=== PATIENT | male | born 1980 | race Caucasian/White ===

== ENCOUNTER 2016-04-16 11:25 | Emergency (ER) | payer OTHER ==
--- NOTE | 2016-04-16 12:59 | EDDOCDS ---
Physician Documentation [facility] Name: Sukhwinder Faye Age: 36 yrs Sex: Male : 1980 Arrival Date: 04/16/2016 Time: 11:25 Bed TR3 Private MD: CONNIE Kim Disposition: 04/16/16 12:45 Discharged to Home/Self Care. Impression: Other acute postprocedural pain. - Condition is Stable. - Discharge Instructions: Musculoskeletal Pain. - Medication Reconciliation, Local Pharmacy Hours form. - Follow up: CONNIE Kim; When: Today; Reason: Further diagnostic work-up, Recheck today's complaints, Continuance of care. - Problem is an ongoing problem. - Symptoms are unchanged. Historical: - Allergies: No known drug Allergies; - Home Meds: 1. Amlodipine 25 mg Oral 1 tab once daily (Last dose: 04/16/2016 06:40) 2. losartan-hydrochlorothiazide 100-25 mg oral tab 1 tab once daily (Last dose: 04/16/2016 06:40) - PMHx: Hypertension; - PSHx: left ankle surgery; Tonsillectomy; right wrist surgery; - Social history: Smoking status: Patient states was never smoker of tobacco. No barriers to communication noted, The patient speaks fluent Paraguayan. - Family history: Not pertinent. - : The pt / caregiver states he / she is not on anticoagulants. Home medication list is obtained from the patient. - Exposure Risk Screening:: None identified. Vital Signs: 04/16 11:28 BP 155 / 83; Pulse 52; Resp 20; Temp 96.0(O); Pulse Ox 99% on R/A; Weight 90.72 kg / elp 200 lbs (R); Height 6 ft. 1 in. (185.42 cm) (R); 12:55 BP 150 / 84; Pulse 54; Resp 18; Temp 99.0(TE); Pulse Ox 98% on R/A; Pain 0/10; mdr 11:28 Body Mass Index 26.39 (90.72 kg, 185.42 cm) elp Signatures: Charu Hong RN RN Shaun Garsia PA PA btw Fuller, DesireeRN RN dsf MTDD
--- NOTE | 2016-04-16 13:00 | EDDOCDS ---
Nurse's Notes [facility] Name: Sukhwinder Faye Age: 36 yrs Sex: Male : 1980 Arrival Date: 04/16/2016 Time: 11:25 Bed TR3 Private MD: CONNIE Kim Diagnosis: Other acute postprocedural pain Presentation: 04/16 11:30 Presenting complaint: Patient states: Orthopedic surgery left 03-18-16 , left leg kpj swelling x 3 days seen at [place] today sent for r/o DVT. Adult Sepsis Screening: The patient does not have new or worsening altered mentation. Patient's respiratory rate is less than 22. Systolic blood pressure is greater than 100. Patient has a qSOFA score of 0- Negative Sepsis Screen. Suicide/Homicide risk assessment- the patient denies having any suicidal and/or homicidal ideations and does not present with any other emotional, behavioral or mental health complaints. Status: The patient is an active duty ramp service employee. Transition of care: Patient was received from [facility]. 11:30 Acuity: RANJITH Level 3 [facility] 11:30 Method Of Arrival: Ambulance [facility] Triage Assessment: 11:34 General: Appears in no apparent distress, Behavior is appropriate for age, pleasant. kpj Pain: Denies pain. Pt Declines HIV testing. Neurological: Level of Consciousness is awake, alert, Oriented to person, place, time. Cardiovascular: Chest pain is denied. Respiratory: Airway is patent Respiratory effort is even, unlabored, Respiratory pattern is regular, symmetrical, Denies shortness of breath. Derm: Skin is pink, warm & dry. Musculoskeletal: Reports swelling left calf. Historical: - Allergies: No known drug Allergies; - Home Meds: 1. Amlodipine 25 mg Oral 1 tab once daily (Last dose: 04/16/2016 06:40) 2. losartan-hydrochlorothiazide 100-25 mg oral tab 1 tab once daily (Last dose: 04/16/2016 06:40) - PMHx: Hypertension; - PSHx: left ankle surgery; Tonsillectomy; right wrist surgery; - Social history: Smoking status: Patient states was never smoker of tobacco. No barriers to communication noted, The patient speaks fluent Macedonian. - Family history: Not pertinent. - : The pt / caregiver states he / she is not on anticoagulants. Home medication list is obtained from the patient. - Exposure Risk Screening:: None identified. Screenin:56 Screening information is obtained from the patient. Fall risk: No risks identified. dsf Assistance ADL's: requires no assistance with activities of daily living. Abuse/DV Screen: The patient / caregiver reports he/she is: not in a situation that causes fear, pain or injury. Nutritional screening: No deficits noted. Advance Directives: Currently, there is no health care proxy. home support is adequate. Assessment: 12:56 Adult Sepsis Screening: The patient does not have new or worsening altered mentation. dsf Patient's respiratory rate is less than 22. Systolic blood pressure is greater than 100. Patient has a qSOFA score of 0- Negative Sepsis Screen. General: Appears in no apparent distress, Behavior is appropriate for age, cooperative. Pain: Denies pain. Neurological: Level of Consciousness is awake, alert. Cardiovascular: No deficits noted. Chest pain is denied. Respiratory: Airway is patent Respiratory effort is even, unlabored, Respiratory pattern is regular, symmetrical, Denies shortness of breath pain with movement. Derm: Skin is pink, warm & dry. Vital Signs: 11:28 BP 155 / 83; Pulse 52; Resp 20; Temp 96.0(O); Pulse Ox 99% on R/A; Weight 90.72 kg (R); elp Height 6 ft. 1 in. (185.42 cm) (R); 12:55 BP 150 / 84; Pulse 54; Resp 18; Temp 99.0(TE); Pulse Ox 98% on R/A; Pain 0/10; mdr 11:28 Body Mass Index 26.39 (90.72 kg, 185.42 cm) [facility] Vitals: 11:28 Log In Time N/A - ambulance arrival. [facility] ED Course: 11:26 Patient visited by Kaelyn Villegas PCA. elp 11:26 Patient moved to Waiting elp 11:27 CONNIE Kim is Private Physician. elp 11:28 Patient visited by Kaelyn Villegas PCA. elp 11:28 Patient moved to Pre RCE elp 11:32 Triage Initiated kp 12:23 Patient moved to Triage 2 kp 12:31 [facility] btw 12:31 Mary Jenkins MD is Attending Physician. btw 12:31 Patient visited by Shaun Holguin PA. btw 12:44 CONNIE Kim is Referral Physician. btw 12:55 Patient visited by Keith Brooks PCA. mdr 12:56 The patient / caregiver is instructed regarding the plan of care and ED course. dsf 12:56 No IV's were initiated during this patient's visit. No procedures done that require dsf assistance. 12:57 Patient moved to TR3 mdr Order Results: There are currently no results for this order. Outcome: 12:45 Discharge ordered by Provider. btw 12:56 Discharge Assessment: Patient awake, alert and oriented x 3. No cognitive and/or dsf functional deficits noted. Patient verbalized understanding of disposition instructions. patient administered narcotics - yes. Pt provided with safe discharge. The following High Risk Discharge criteria are identified: None. Discharged to home with crutches, with significant other. Condition: stable. Discharge instructions given to patient, Instructed on discharge instructions, follow up and referral plans. Demonstrated understanding of instructions, Pt was receptive of discharge instructions/ teaching. No special radiology studies were completed. Property sent home with patient. 12:58 Patient left the ED. dsf Signatures: Charu Hong RN RN Shaun Garsia PA PA btw Viktoriya GillRN RN dsf Kaelyn Villegas, EVER [employer] SERGEANT elp Keith Brooks, [employer] SERGEANT mdr MTDD
--- NOTE | 2016-04-18 14:00 | EDDOCDS ---
Physician Documentation [facility] Name: Sukhwinder Faye Age: 36 yrs Sex: Male : 1980 Arrival Date: 04/16/2016 Time: 11:25 Bed TR3 Private MD: CONNIE Kim Disposition: 04/16/16 12:45 Discharged to Home/Self Care. Impression: Other acute postprocedural pain. - Condition is Stable. - Discharge Instructions: Musculoskeletal Pain. - Medication Reconciliation, Local Pharmacy Hours form. - Follow up: CONNIE Kim; When: Today; Reason: Further diagnostic work-up, Recheck today's complaints, Continuance of care. - Problem is an ongoing problem. - Symptoms are unchanged. Historical: - Allergies: No known drug Allergies; - Home Meds: 1. Amlodipine 25 mg Oral 1 tab once daily (Last dose: 04/16/2016 06:40) 2. losartan-hydrochlorothiazide 100-25 mg oral tab 1 tab once daily (Last dose: 04/16/2016 06:40) - PMHx: Hypertension; - PSHx: left ankle surgery; Tonsillectomy; right wrist surgery; - Social history: Smoking status: Patient states was never smoker of tobacco. No barriers to communication noted, The patient speaks fluent Austrian. - Family history: Not pertinent. - : The pt / caregiver states he / she is not on anticoagulants. Home medication list is obtained from the patient. - Exposure Risk Screening:: None identified. Vital Signs: 04/16 11:28 BP 155 / 83; Pulse 52; Resp 20; Temp 96.0(O); Pulse Ox 99% on R/A; Weight 90.72 kg / elp 200 lbs (R); Height 6 ft. 1 in. (185.42 cm) (R); 12:55 BP 150 / 84; Pulse 54; Resp 18; Temp 99.0(TE); Pulse Ox 98% on R/A; Pain 0/10; mdr 11:28 Body Mass Index 26.39 (90.72 kg, 185.42 cm) elp MDM: 13:18 [facility] Payment Agreement was scanned into [email or web address] and attached to record. lg 14:49 T-Sheet-- Draft Copy was scanned into [email or web address] and attached to record. gb 14:49 PCR was scanned into [email or web address] and attached to record. gb Signatures: Charu Hong, RN RN kpj Jennie Moore, Reg Reg gb Nilson Alaniz, Reg Reg lg Shaun Holguin PA PA btw Viktoriya Gill,RN RN dsf The chart was reviewed and I authenticate all verbal orders and agree with the evaluation and treatment provided.Attachments: 13:18 [facility] Payment Agreement lg 14:49 T-Sheet-- Draft Copy gb Chart Complete MTDD
--- NOTE | 2016-04-18 14:00 | EDDOCDS ---
Nurse's Notes [facility] Name: Sukhwinder Faye Age: 36 yrs Sex: Male : 1980 Arrival Date: 04/16/2016 Time: 11:25 Bed TR3 Private MD: CONNIE Kim Diagnosis: Other acute postprocedural pain Presentation: 04/16 11:30 Presenting complaint: Patient states: Orthopedic surgery left 03-18-16 , left leg kpj swelling x 3 days seen at [place] today sent for r/o DVT. Adult Sepsis Screening: The patient does not have new or worsening altered mentation. Patient's respiratory rate is less than 22. Systolic blood pressure is greater than 100. Patient has a qSOFA score of 0- Negative Sepsis Screen. Suicide/Homicide risk assessment- the patient denies having any suicidal and/or homicidal ideations and does not present with any other emotional, behavioral or mental health complaints. 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 Transition of care: Patient was received from [facility]. 11:30 Acuity: RANJITH Level 3 [facility] 11:30 Method Of Arrival: Ambulance [facility] Triage Assessment: 11:34 General: Appears in no apparent distress, Behavior is appropriate for age, pleasant. kpj Pain: Denies pain. Pt Declines HIV testing. Neurological: Level of Consciousness is awake, alert, Oriented to person, place, time. Cardiovascular: Chest pain is denied. Respiratory: Airway is patent Respiratory effort is even, unlabored, Respiratory pattern is regular, symmetrical, Denies shortness of breath. Derm: Skin is pink, warm & dry. Musculoskeletal: Reports swelling left calf. Historical: - Allergies: No known drug Allergies; - Home Meds: 1. Amlodipine 25 mg Oral 1 tab once daily (Last dose: 04/16/2016 06:40) 2. losartan-hydrochlorothiazide 100-25 mg oral tab 1 tab once daily (Last dose: 04/16/2016 06:40) - PMHx: Hypertension; - PSHx: left ankle surgery; Tonsillectomy; right wrist surgery; - Social history: Smoking status: Patient states was never smoker of tobacco. No barriers to communication noted, The patient speaks fluent Thai. - Family history: Not pertinent. - : The pt / caregiver states he / she is not on anticoagulants. Home medication list is obtained from the patient. - Exposure Risk Screening:: None identified. Screenin:56 Screening information is obtained from the patient. Fall risk: No risks identified. dsf Assistance ADL's: requires no assistance with activities of daily living. Abuse/DV Screen: The patient / caregiver reports he/she is: not in a situation that causes fear, pain or injury. Nutritional screening: No deficits noted. Advance Directives: Currently, there is no health care proxy. home support is adequate. Assessment: 12:56 Adult Sepsis Screening: The patient does not have new or worsening altered mentation. dsf Patient's respiratory rate is less than 22. Systolic blood pressure is greater than 100. Patient has a qSOFA score of 0- Negative Sepsis Screen. General: Appears in no apparent distress, Behavior is appropriate for age, cooperative. Pain: Denies pain. Neurological: Level of Consciousness is awake, alert. Cardiovascular: No deficits noted. Chest pain is denied. Respiratory: Airway is patent Respiratory effort is even, unlabored, Respiratory pattern is regular, symmetrical, Denies shortness of breath pain with movement. Derm: Skin is pink, warm & dry. Vital Signs: 11:28 BP 155 / 83; Pulse 52; Resp 20; Temp 96.0(O); Pulse Ox 99% on R/A; Weight 90.72 kg (R); elp Height 6 ft. 1 in. (185.42 cm) (R); 12:55 BP 150 / 84; Pulse 54; Resp 18; Temp 99.0(TE); Pulse Ox 98% on R/A; Pain 0/10; mdr 11:28 Body Mass Index 26.39 (90.72 kg, 185.42 cm) [facility] Vitals: 11:28 Log In Time N/A - ambulance arrival. [facility] ED Course: 11:26 Patient visited by Kaelyn Villegas PCA. elp 11:26 Patient moved to Waiting elp 11:27 CONNIE Kim is Private Physician. elp 11:28 Patient visited by Kaelyn Villegas PCA. elp 11:28 Patient moved to Pre RCE elp 11:32 Triage Initiated kp 12:23 Patient moved to Triage 2 kp 12:31 Sha[facility] Holguin PA is [facility]. btw 12:31 Mary Jenkins MD is Attending Physician. btw 12:31 Patient visited by Shaun Holguin PA. btw 12:44 [facility] [place] Referral Physician. btw 12:55 Patient visited by Keith Brooks PCA. mdr 12:56 The patient / caregiver is instructed regarding the plan of care and ED course. dsf 12:56 No IV's were initiated during this patient's visit. No procedures done that require dsf assistance. 12:57 Patient moved to 3 mdr 13:18 [facility] Payment Agreement was scanned into [employer] and attached to record. lg 14:49 T-Sheet-- Draft Copy was scanned into [employer] and attached to record. gb 14:49 PCR was scanned into [employer] and attached to record. gb Order Results: There are currently no results for this order. Outcome: 12:45 Discharge ordered by Provider. btw 12:56 Discharge Assessment: Patient awake, alert and oriented x 3. No cognitive and/or dsf functional deficits noted. Patient verbalized understanding of disposition instructions. patient administered narcotics - yes. Pt provided with safe discharge. The following High Risk Discharge criteria are identified: None. Discharged to home with crutches, with significant other. Condition: stable. Discharge instructions given to patient, Instructed on discharge instructions, follow up and referral plans. Demonstrated understanding of instructions, Pt was receptive of discharge instructions/ teaching. No special radiology studies were completed. Property sent home with patient. 12:58 Patient left the ED. dsf Signatures: Charu Hong, RN RN [facility] Jennie Moore, Reg Reg gb Nilson Alaniz, Reg Reg lg Shaun Holguin PA PA btw Fuller, Desiree, RN RN dsf Kaelyn Villegas, MATERIALS INTERN MATERIALS INTERN elp Keith Brooks, EVER MATERIALS INTERN mdr Chart Complete MTDD
--- NOTE | 2016-04-18 14:00 | EDDOCDS ---
Physician Documentation [facility] Name: Sukhwinder Faye Age: 36 yrs Sex: Male : 1980 Arrival Date: 04/16/2016 Time: 11:25 Bed TR3 Private MD: CONNIE Kim Disposition: 04/16/16 12:45 Discharged to Home/Self Care. Impression: Other acute postprocedural pain. - Condition is Stable. - Discharge Instructions: Musculoskeletal Pain. - Medication Reconciliation, Local Pharmacy Hours form. - Follow up: CONNIE Kim; When: Today; Reason: Further diagnostic work-up, Recheck today's complaints, Continuance of care. - Problem is an ongoing problem. - Symptoms are unchanged. Historical: - Allergies: No known drug Allergies; - Home Meds: 1. Amlodipine 25 mg Oral 1 tab once daily (Last dose: 04/16/2016 06:40) 2. losartan-hydrochlorothiazide 100-25 mg oral tab 1 tab once daily (Last dose: 04/16/2016 06:40) - PMHx: Hypertension; - PSHx: left ankle surgery; Tonsillectomy; right wrist surgery; - Social history: Smoking status: Patient states was never smoker of tobacco. No barriers to communication noted, The patient speaks fluent Argentine. - Family history: Not pertinent. - : The pt / caregiver states he / she is not on anticoagulants. Home medication list is obtained from the patient. - Exposure Risk Screening:: None identified. Vital Signs: 04/16 11:28 BP 155 / 83; Pulse 52; Resp 20; Temp 96.0(O); Pulse Ox 99% on R/A; Weight 90.72 kg / elp 200 lbs (R); Height 6 ft. 1 in. (185.42 cm) (R); 12:55 BP 150 / 84; Pulse 54; Resp 18; Temp 99.0(TE); Pulse Ox 98% on R/A; Pain 0/10; mdr 11:28 Body Mass Index 26.39 (90.72 kg, 185.42 cm) elp MDM: 13:18 [facility] Payment Agreement was scanned into [employer] and attached to record. lg 14:49 T-Sheet-- Draft Copy was scanned into [employer] and attached to record. gb 14:49 PCR was scanned into [employer] and attached to record. gb Signatures: Charu Hong, RN RN kpj Jennie Moore, Reg Reg gb Nilson Alaniz, Reg Reg lg Shaun Holguin PA PA btw Viktoriya Gill,RN RN dsf The chart was reviewed and I authenticate all verbal orders and agree with the evaluation and treatment provided.Attachments: 13:18 [facility] [place] Agreement lg 14:49 T-Sheet-- Draft Copy gb Chart Complete MTDD
== END 2016-04-16 12:58 | disposition home or self-care (01) ==
LOC: M ED 11:25
DX: G89.18 Other acute postprocedural pain (principal); I10 Essential (primary) hypertension; Z79.899 Other long term (current) drug therapy

== ENCOUNTER → 2021-01-20 | Outpatient (CLI) | payer OTHER ==
--- NOTE | 2021-01-20 12:15 | REP ---
INDICATION: UPPER ABD PAIN COMPARISON: None TECHNIQUE: Axial noncontrast images of the abdomen with coronal and sagittal reformations. This CT examination was performed using the following dose reduction techniques: Automated exposure control, adjustment of mA and/or kv according to the patient's size, and use of iterative reconstruction technique. FINDINGS: Lung bases are clear. Visualized heart and pericardium normal. Liver, spleen, pancreas, and bilateral adrenal glands are normal. Cholelithiasis noted without acute cholecystitis. Kidneys demonstrate few scattered nonobstructing calculi measuring up to 2 mm in the right kidney and 4 mm in the left kidney. Stomach appears normal. Visualized portions of the small and large bowel are unremarkable. No ascites. No free air. No adenopathy. Abdominal aorta without aneurysm. Musculoskeletal structures without acute osseous abnormality. IMPRESSION: No acute abdominopelvic pathology appreciated. Cholelithiasis. Nephrolithiasis. <Electronically signed by Puma Singh > 01/20/21 [id number]
== END ==
LOC: M PLAIMG 11:20
PROVIDERS: ATTEND Nurse Practitioner Family
DX: K80.20 Calculus of gallbladder without cholecystitis without obstruction (principal); N20.0 Calculus of kidney

== ENCOUNTER → 2021-05-05 | Outpatient (CLI) | payer OTHER | LOC: M RAD 06:45 | PROVIDERS: ATTEND Nurse Practitioner Family | DX: I10 Essential (primary) hypertension (principal) ==